=== PATIENT | male | born 1955 | race Caucasian/White ===

== ENCOUNTER 2020-12-13 14:23 | Outpatient (CLI) | payer MEDICARE, MEDICAID ==
[~2020-12-13 14:23] MED LIST: APIX5TAB3 PO; ATOR20TA66 PO; BENA20TA82 PO; GLIM4TAB7 PO; LEVE10002 PO; METF-438 PO; NICO-687 TD
[2020-12-14] MEDS ORDERED: ATOR40TA72 PO (11:21)
[2020-12-14] MEDS ORDERED: LEVE500T PO (11:21)
[2020-12-14] MEDS ORDERED: APIX5TAB3 PO (11:23)
[2020-12-14] MEDS ORDERED: ASPI-1265 PO (11:23)
[2020-12-14] MEDS ORDERED: iohexol 350MG/ML 100ml bottle IV ONE (13:21)
[2020-12-14] MEDS ORDERED: ticagrelor 90mg tablet ONE (13:39)
== END 2020-12-13 23:59 | disposition home or self-care (01) ==
LOC: RAD 14:23
PROVIDERS: ATTEND Psychiatry & Neurology Neurology
DX: I67.82 Cerebral ischemia (principal); Z86.73 Personal history of transient ischemic attack (TIA), and cerebral infarction without residual deficits
CPT/HCPCS: 70551; Q9967

== ENCOUNTER 2020-12-14 10:55 | Day surgery (SDC) | payer MEDICARE, MEDICAID ==
[2020-12-10 15:38] LABS: BASOPHILS # (AUTO) 0.1 X10'3 (0-0.2); BASOPHILS % (AUTO) 0.7 % (0-1); EOSINOPHILS # (AUTO) 0.3 X10'3 (0-0.9); EOSINOPHILS % (AUTO) 3.3 % (0-6); HEMATOCRIT 41.1 % (42.0-52.0); LYMPHOCYTES # (AUTO) 2.3 X10'3 (1.1-4.8); LYMPHOCYTES % (AUTO) 27.2 % (21-51); MEAN CORPUSCULAR HEMOGLOBIN 31.3 PG (27.0-31.0); MEAN CORPUSCULAR VOLUME 92.3 FL (78-98); MEAN PLATELET VOLUME 8.8 FL (7.4-10.4); MONOCYTES # (AUTO) 0.6 X10'3 (0-0.9); MONOCYTES % (AUTO) 7.6 % (2-12); NEUTROPHILS # (AUTO) 5.2 X10'3 (1.8-7.7); NEUTROPHILS % (AUTO) 61.2 % (42-75); PLATELET COUNT 262 X10'3 (140-440); RED BLOOD COUNT 4.45 X10'6 (4.70-6.10); RED CELL DISTRIBUTION WIDTH 14.3 % (11.5-14.5); WHITE BLOOD COUNT 8.5 X10'3 (4.5-11.0)
[2020-12-10 15:51] LABS: PARTIAL THROMBOPLASTIN TIME 31 SECONDS (22-32)
[2020-12-10 15:52] LABS: ALBUMIN 3.9 G/DL (3.4-5.0); ANION GAP 6 (8-16); BLOOD UREA NITROGEN 25 MG/DL (7-18); BUN/CREATININE RATIO 22.5 (5.4-32.0); CALCIUM 9.6 MG/DL (8.5-10.1); CHLORIDE 108 MMOL/L (99-107); CREATININE 1.11 MG/DL (0.60-1.10); GLUCOSE 93 MG/DL (70-104); POTASSIUM 4.6 MMOL/L (3.5-5.1); SODIUM 144 MMOL/L (135-145); TOTAL CARBON DIOXIDE 29.6 MMOL/L (24-32); eGFR 66 ML/MIN
[2020-12-14] VITALS (9 sets, daily range): BP systolic 130–153; BP diastolic 68–81
[~2020-12-14] VITALS: Ht 185.4 cm; Wt 92.1 kg
[2020-12-14] MEDS ORDERED: diphenhydrAMINE 25mg capsule PO PRN (11:15)
[2020-12-14] MEDS ORDERED: LIDOcaine/PRILOcaine 5gm cream TP ONE (11:15)
[2020-12-14] MEDS ORDERED: normal saline 1,000 ML IV SCH (11:15)
[2020-12-14] MEDS ORDERED: LORazepam 0.5 MG tablet PO PRN (11:15)
[2020-12-14] MEDS ORDERED: ATOR40TA72 PO (11:21)
[2020-12-14] MEDS ORDERED: LEVE500T PO (11:21)
[2020-12-14] MEDS ORDERED: APIX5TAB3 PO (11:23)
[2020-12-14] MEDS ORDERED: ASPI-1265 PO (11:23)
[2020-12-14] MEDS ORDERED: verapamil 2.5 mg/ml inj IV ONE (12:12)
[2020-12-14] MEDS ORDERED: nitroGLYCERIN-Tridil 50MG/D5W 250 ML IV ONE (12:12)
[2020-12-14] MEDS ORDERED: midazolam 1 mg/ML 2ml injection ONE (12:12)
[2020-12-14] MEDS ORDERED: heparin 1,000unit/ml 10ml vial 10 ML ONE (12:12)
[2020-12-14] MEDS ORDERED: fentaNYL/PF 50MCG/1 ML 2ML syringe ONE (12:12)
[2020-12-14] MEDS ORDERED: LIDOcaine 1% (10mg/ml)w/preservative injection 20ml MDV ONE (12:12)
[2020-12-14] MEDS ORDERED: iohexol 350MG/ML 100ml bottle IV ONE (12:13)
[2020-12-14] MEDS ORDERED: ondansetron/PF 4mg/2ml inj IV PRN (14:00)
[2020-12-14] MEDS ORDERED: proCHLORperazine 10 MG/2 ml inj IV PRN (14:00)
[2020-12-14] MEDS ORDERED: HYDROcodone/acetaminophen 5mg/325mg tablet PO PRN (14:00)
[2020-12-14] MEDS ORDERED: nitroGLYCERIN 0.4mg SUBLingual tab SL PRN (14:00)
[2020-12-14] MEDS ORDERED: HYDROcodone/acetaminophen 10/325mg tab PO PRN (14:00)
[2020-12-14] MEDS ORDERED: OXAZEpam 15mg capsule PO PRN (14:00)
[2020-12-14] MEDS ORDERED: acetaminophen 325mg tablet PO PRN (14:00)
== END 2020-12-14 17:00 | disposition home or self-care (01) ==
LOC: SSTAY O 10:55
PROVIDERS: ATTEND Internal Medicine Interventional Cardiology
DX: R94.39 Abnormal result of other cardiovascular function study (principal); R07.89 Other chest pain; I25.10 Atherosclerotic heart disease of native coronary artery without angina pectoris; E11.9 Type 2 diabetes mellitus without complications; I10 Essential (primary) hypertension; I48.91 Unspecified atrial fibrillation; E78.00 Pure hypercholesterolemia, unspecified; F17.210 Nicotine dependence, cigarettes, uncomplicated; Z86.73 Personal history of transient ischemic attack (TIA), and cerebral infarction without residual deficits; Z79.84 Long term (current) use of oral hypoglycemic drugs; Z79.01 Long term (current) use of anticoagulants; Z79.899 Other long term (current) drug therapy
CPT/HCPCS: 36415; 80048; 85025; 85610; 85730; 93005; 93458; 99152; 99153; C1751; C1769; C1874; C1894; C9600; J1644; J2001; J2250; J3010; J7030; Q0163; Q9967; A4620; J3490

== ENCOUNTER 2020-12-27 08:35 | Outpatient (CLI) | payer MEDICARE, MEDICAID ==
[~2020-12-27 08:35] MED LIST changes: +ASPI-1265 PO; -ATOR20TA66 PO; +ATOR40TA72 PO; -LEVE10002 PO; +LEVE500T PO; -NICO-687 TD
== END 2020-12-27 23:59 | disposition home or self-care (01) ==
LOC: RAD 08:35
PROVIDERS: ATTEND Psychiatry & Neurology Neurology
DX: R56.9 Unspecified convulsions (principal)
CPT/HCPCS: 95819

== ENCOUNTER 2021-03-27 14:47 | Emergency (ER) | payer MEDICARE, MEDICAID ==
[~2021-03-27] VITALS: Ht 185.4 cm; Wt 100.0 kg
[2021-03-27 15:02] VITALS: BP 204/114
== END 2021-03-27 17:52 | disposition home or self-care (01) ==
LOC: ER 14:48
DX: J20.9 Acute bronchitis, unspecified (principal); Z20.822 Contact with and (suspected) exposure to COVID-19; I10 Essential (primary) hypertension; E11.9 Type 2 diabetes mellitus without complications; F17.200 Nicotine dependence, unspecified, uncomplicated; Z79.82 Long term (current) use of aspirin; Z79.899 Other long term (current) drug therapy
CPT/HCPCS: 87502; 87503; 87635; 99283; C9803

== ENCOUNTER 2022-05-04 18:34 | Emergency (ER) | payer MEDICARE, MEDICAID ==
[~2022-05-04] VITALS: Ht 185.4 cm; Wt 90.7 kg
[2022-05-04 18:36] VITALS: BP 217/92
== END 2022-05-04 19:39 | disposition left against medical advice (07) ==
LOC: ER 18:34
DX: R51.9 Headache, unspecified (principal); Z53.21 Procedure and treatment not carried out due to patient leaving prior to being seen by health care provider
CPT/HCPCS: 70450

== ENCOUNTER 2024-04-08 10:46 | Inpatient (IN) | payer MEDICARE, MEDICAID ==
[~2024-04-08] VITALS: Ht 185.4 cm; Wt 87.6 kg
[2024-04-08 11:33] LABS: BASOPHILS # (AUTO) 0.1 X10'3 (0-0.2); BASOPHILS % (AUTO) 0.8 % (0-1); EOSINOPHILS # (AUTO) 0.2 X10'3 (0-0.9); EOSINOPHILS % (AUTO) 3.4 % (0-6); HEMATOCRIT 45.3 % (42.0-52.0); LYMPHOCYTES # (AUTO) 1.4 X10'3 (1.1-4.8); MEAN CORPUSCULAR HEMOGLOBIN 31.2 PG (27.0-31.0); MEAN CORPUSCULAR HGB CONC 33.2 g/dL (33.0-36.5); MEAN CORPUSCULAR VOLUME 94.1 FL (78-98); MEAN PLATELET VOLUME 8.4 FL (7.4-10.4); MONOCYTES # (AUTO) 0.5 X10'3 (0-0.9); MONOCYTES % (AUTO) 6.6 % (2-12); NEUTROPHILS % (AUTO) 69.2 % (42-75); PLATELET COUNT 293 X10'3 (140-440); RED BLOOD COUNT 4.81 X10'6 (4.70-6.10); RED CELL DISTRIBUTION WIDTH 14.3 % (11.5-14.5); WHITE BLOOD COUNT 7.2 X10'3 (4.5-11.0)
[2024-04-08 11:38] LABS: ALANINE AMINOTRANSFERASE 19 U/L (12-78); ALBUMIN 3.4 G/DL (3.4-5.0); ALBUMIN/GLOBULIN RATIO 0.9 (1.1-1.5); ALKALINE PHOSPHATASE 101 IU/L (46-116); ANION GAP 6 (8-16); ASPARTATE AMINO TRANSFERASE 16 U/L (10-37); BILIRUBIN,TOTAL 0.5 MG/DL (0.1-1.0); BLOOD UREA NITROGEN 25 MG/DL (7-18); CALCIUM 9.1 MG/DL (8.5-10.1); CHLORIDE 104 MMOL/L (99-107); CREATININE 1.47 MG/DL (0.60-1.10); GLUCOSE 322 MG/DL (70-104); POTASSIUM 4.8 MMOL/L (3.5-5.1); SODIUM 140 MMOL/L (135-145); TOTAL CARBON DIOXIDE 30.1 MMOL/L (24-32); TOTAL PROTEIN 7.4 G/DL (6.4-8.2); eCRCL 54 ML/MIN; eGFR 47 ML/MIN
[2024-04-08 11:47] LABS: PRO BRAIN NATRIURETIC PEPTIDE 5089 PG/ML (0-125)
[2024-04-08] MEDS ORDERED: iohexol 350MG/ML 100ml bottle IV ONE (14:11)
[2024-04-08] MEDS: normal saline 1000ML IV soln IVB ONE (15:32)
[2024-04-08] MEDS: insulin regular, human 10 units/0.1 ml syringe IV ONE (15:34)
[2024-04-08] MEDS ORDERED: potassium Cl 40MEQ/1/2NS 520ml 520 ML IV PRN (16:15)
[2024-04-08] MEDS ORDERED: mag hydrox/Alum hydrox/simeth 30ml oral suspension PO PRN (16:15)
[2024-04-08] MEDS ORDERED: ondansetron/PF 4mg/2ml inj IV PRN (16:15)
[2024-04-08] MEDS ORDERED: magnesium sulf-water 4G/100mL 100 ML IV PRN (16:15)
[2024-04-08] MEDS ORDERED: potassium Cl 20 mEq SR tablet PO PRN ×2 (16:15)
[2024-04-08] MEDS ORDERED: acetaminophen 325mg tablet PO PRN (16:15)
[2024-04-08] MEDS ORDERED: magnesium sulf-water 2g/50mL 50 ML IV PRN (16:15)
[2024-04-08] MEDS ORDERED: magnesium Cl slow-release 64mg tablet PO PRN (16:15)
[2024-04-08] MEDS ORDERED: magnesium hydroxide 30ml (MOM) UD suspension PO PRN (16:15)
[2024-04-08] MEDS: PERFLUTREN PROTEIN-A MICROSPHR (Optison) 0.22 MG/ML 3ML VIAL IV ONE (16:26)
[2024-04-08] MEDS: normal saline 1000ml 1,000 ML IV SCH (16:26)
[2024-04-08] MEDS ORDERED: FLO0.4C (18:56)
[2024-04-08] MEDS ORDERED: TICA90TA2 PO (18:56)
[2024-04-08] MEDS ORDERED: NITR0.4T48 (18:56)
[2024-04-08] MEDS ORDERED: EMPA25TA PO (18:56)
[2024-04-08] MEDS ORDERED: INSU100I31 SQ (18:56)
[2024-04-08] MEDS: K and/or MAG REPLACEMENT MC SCH (20:00)
[2024-04-08] MEDS: docusate sod 100mg capsule PO SCH (20:00)
[2024-04-08 21:19] VITALS: BP 178/83; PULSE 57; RESP 18; TEMP 97.7; O2SAT 97
[2024-04-08] MEDS ORDERED: dextrose 50%-water 50ml dispensing syringe IV PRN ×2 (21:45)
[2024-04-08] MEDS ORDERED: glucagon, human recombinant 1mg kit SUBCUT PRN (21:45)
[2024-04-08] MEDS ORDERED: DEXTROSE 15 GM of carb/4 tabs (each vial/BOTTLE has 4 tablets) PO PRN ×2 (21:45)
[2024-04-08 22:06] LABS: HEMOGLOBIN A1C 9.4 % (4.5-6.2)
[2024-04-08] MEDS: ticagrelor 90mg tablet PO SCH (22:22)
[2024-04-08] MEDS: apixaban 5mg tablet PO SCH (22:22)
[2024-04-08] MEDS: levetiracetam 250mg tablet PO SCH (22:22)
[2024-04-08] MEDS: lisinopril 20mg tablet PO SCH (22:26)
[2024-04-08] MEDS: INSULIN LISPRO 100 UNIT/ML INSULN.PEN MULTI-DOSE SQ SCH (23:51)
[2024-04-08] MEDS: insulin glargine (Lantus) pen - multi-dose SQ SCH (23:52)
[2024-04-09] VITALS (9 sets, daily range): BP systolic 141–166; BP diastolic 64–84; PULSE 55–71; RESP 16–20; TEMP 97.3–98.8; O2SAT 94–99
[2024-04-09] MEDS: guaiFENesin/DM 10ml UD oral syrup PO PRN (01:42)
[2024-04-09 06:50] LABS: BASOPHILS # (AUTO) 0.1 X10'3 (0-0.2); BASOPHILS % (AUTO) 0.7 % (0-1); EOSINOPHILS # (AUTO) 0.4 X10'3 (0-0.9); EOSINOPHILS % (AUTO) 4.4 % (0-6); HEMATOCRIT 41.1 % (42.0-52.0); HEMOGLOBIN 13.7 g/dl (14.0-17.9); LYMPHOCYTES # (AUTO) 2.2 X10'3 (1.1-4.8); MEAN CORPUSCULAR HEMOGLOBIN 31.2 PG (27.0-31.0); MEAN CORPUSCULAR HGB CONC 33.4 g/dL (33.0-36.5); MEAN CORPUSCULAR VOLUME 93.5 FL (78-98); MONOCYTES # (AUTO) 0.7 X10'3 (0-0.9); MONOCYTES % (AUTO) 8.4 % (2-12); NEUTROPHILS # (AUTO) 4.8 X10'3 (1.8-7.7); NEUTROPHILS % (AUTO) 59.5 % (42-75); PLATELET COUNT 250 X10'3 (140-440); RED CELL DISTRIBUTION WIDTH 14.4 % (11.5-14.5)
[2024-04-09 06:51] LABS: ALBUMIN 2.9 G/DL (3.4-5.0); ANION GAP 6 (8-16); BLOOD UREA NITROGEN 23 MG/DL (7-18); BUN/CREATININE RATIO 15.6 (10.0-20.0); CALCIUM 8.4 MG/DL (8.5-10.1); CHLORIDE 107 MMOL/L (99-107); CREATININE 1.47 MG/DL (0.60-1.10); GLUCOSE 223 MG/DL (70-104); POTASSIUM 3.9 MMOL/L (3.5-5.1); SODIUM 144 MMOL/L (135-145); TOTAL CARBON DIOXIDE 30.9 MMOL/L (24-32); eCRCL 54 ML/MIN; eGFR 47 ML/MIN
[2024-04-09] MEDS: atorvastatin 20mg tablet PO SCH (07:44)
[2024-04-09] MEDS: INSULIN LISPRO 100 UNIT/ML INSULN.PEN MULTI-DOSE SQ SCH (09:00)
[2024-04-09 11:40] LABS: CHOL/HDL RATIO 2.7 (0.00-4.99); CHOLESTEROL 136 MG/DL (0-200); HDL CHOLESTEROL 51 MG/DL (35-60); LDL CHOLESTEROL 63 MG/DL (50-100); TRIGLYCERIDES 112 MG/DL (20-135)
[2024-04-10 02:00] VITALS: BP 148/63; PULSE 55; RESP 18; TEMP 97.9; O2SAT 96
[2024-04-10 07:10] LABS: ALBUMIN 2.8 G/DL (3.4-5.0); ANION GAP 5 (8-16); BLOOD UREA NITROGEN 28 MG/DL (7-18); BUN/CREATININE RATIO 19.4 (10.0-20.0); CALCIUM 8.6 MG/DL (8.5-10.1); CHLORIDE 108 MMOL/L (99-107); CREATININE 1.44 MG/DL (0.60-1.10); GLUCOSE 151 MG/DL (70-104); MAGNESIUM 2.1 MG/DL (1.5-2.4); SODIUM 144 MMOL/L (135-145); TOTAL CARBON DIOXIDE 31.2 MMOL/L (24-32); eCRCL 55 ML/MIN; eGFR 49 ML/MIN
[2024-04-10 07:12] LABS: BASOPHILS # (AUTO) 0.1 X10'3 (0-0.2); BASOPHILS % (AUTO) 0.9 % (0-1); EOSINOPHILS # (AUTO) 0.4 X10'3 (0-0.9); EOSINOPHILS % (AUTO) 4.3 % (0-6); HEMATOCRIT 40.4 % (42.0-52.0); HEMOGLOBIN 13.6 g/dl (14.0-17.9); LYMPHOCYTES # (AUTO) 2.1 X10'3 (1.1-4.8); LYMPHOCYTES % (AUTO) 23.9 % (21-51); MEAN CORPUSCULAR HEMOGLOBIN 31.3 PG (27.0-31.0); MEAN CORPUSCULAR HGB CONC 33.6 g/dL (33.0-36.5); MEAN CORPUSCULAR VOLUME 93.1 FL (78-98); MEAN PLATELET VOLUME 8.4 FL (7.4-10.4); MONOCYTES # (AUTO) 0.7 X10'3 (0-0.9); MONOCYTES % (AUTO) 8.2 % (2-12); NEUTROPHILS # (AUTO) 5.6 X10'3 (1.8-7.7); NEUTROPHILS % (AUTO) 62.7 % (42-75); PLATELET COUNT 260 X10'3 (140-440); RED BLOOD COUNT 4.34 X10'6 (4.70-6.10); RED CELL DISTRIBUTION WIDTH 14.1 % (11.5-14.5); WHITE BLOOD COUNT 8.9 X10'3 (4.5-11.0)
[2024-04-10 08:00] VITALS: BP 142/68; PULSE 62
[2024-04-10] MEDS: normal saline 1000ml 1,000 ML IV SCH (11:09)
[2024-04-10 12:00] VITALS: BP 163/83; PULSE 61; RESP 16; TEMP 97.5; O2SAT 99
[2024-04-10 14:09] VITALS: RESP 16; O2SAT 100
[2024-04-10 15:00] VITALS: BP 157/75; PULSE 59; RESP 16; TEMP 97.6; O2SAT 97
[2024-04-12] MEDS ORDERED: HYDR50TA46 PO (10:05)
[2024-04-12] MEDS ORDERED: PANT-47 PO (10:09)
== END 2024-04-10 17:16 | disposition home or self-care (01) | DRG 149 ==
LOC: ER 10:46 → ED HOLD 16:22 → EDBEDREQ 20:35 → PCU 3S 21:16
PROVIDERS: ADMIT Internal Medicine; ATTEND Internal Medicine
PROC: B3251ZZ Computerized Tomography (CT Scan) of Bilateral Common Carotid Arteries using Low Osmolar Contrast (ICD-10-PCS; principal; 2024-04-08)
PROC: B32G1ZZ Computerized Tomography (CT Scan) of Bilateral Vertebral Arteries using Low Osmolar Contrast (ICD-10-PCS; 2024-04-08)
PROC: B32R1ZZ Computerized Tomography (CT Scan) of Intracranial Arteries using Low Osmolar Contrast (ICD-10-PCS; 2024-04-08)
PROC: B3281ZZ Computerized Tomography (CT Scan) of Bilateral Internal Carotid Arteries using Low Osmolar Contrast (ICD-10-PCS; 2024-04-08)
DX: H81.10 Benign paroxysmal vertigo, unspecified ear (principal); I69.354 Hemiplegia and hemiparesis following cerebral infarction affecting left non-dominant side; I67.4 Hypertensive encephalopathy; I16.0 Hypertensive urgency; I10 Essential (primary) hypertension; Z20.822 Contact with and (suspected) exposure to COVID-19; G40.909 Epilepsy, unspecified, not intractable, without status epilepticus; E78.5 Hyperlipidemia, unspecified; E11.65 Type 2 diabetes mellitus with hyperglycemia; Z79.01 Long term (current) use of anticoagulants; Z79.899 Other long term (current) drug therapy; Z79.84 Long term (current) use of oral hypoglycemic drugs
CPT/HCPCS: 36415; 70450; 70496; 70498; 70551; 71045; 80048; 80053; 80061; 82948; 83036; 83735; 83880; 84484; 85025; 87081; 87811; 93005; 93306; 93880; 97162; 99285; A6223; A6258; A6402; A6446; A6449; G0378; J1815; J7030; Q9967

== ENCOUNTER 2025-01-27 10:35 | Day surgery (SDC) | payer MEDICARE, MEDICAID ==
[~2025-01-27] VITALS: Ht 185.4 cm; Wt 82.2 kg
[2025-01-27] VITALS (10 sets, daily range): BP systolic 142–162; BP diastolic 65–83; PULSE 59–87; RESP 12–18; TEMP 98.3; O2SAT 93–97
[~2025-01-27 10:35] MED LIST changes: +AMLO-379 PO; -ASPI-1265 PO; -BENA20TA82 PO; +EMPA25TA PO; +FURO40TA4 PO; -GLIM4TAB7 PO; +HYDR50TA46 PO; +INSU100I31 SQ; -LEVE500T PO; +NITR0.4T48; +SOTA80TA73 PO; +TADA5TAB14 PO
--- NOTE | 2025-01-27 11:07 | ELECTROCARDIOGRAPH REPORT ---
[facility] Test Date: 2025-01-27 Test Time: 11:04:53 Pat Name: MAGNO SCOTT Department: [facility] O Patient ID: [facility]-[id number] Room: Gender: M Progressive Care Manager: NIMO : 1955 Requested By: CLAUDIA SANDERSON Order Number: [id number] Reading MD: Dr. CHAN Cohen Measurements Intervals [place] Rate: 86 P: 0 MS: 0 QRS: -75 QRSD: 149 T: 101 QT: 449 QTc: 537 Interpretive Statements Accelerated junctional rhythm Right bundle branch block LVH with IVCD and secondary repol abnrm Inferior infarct, acute Prolonged QT interval Electronically Signed On 01-27-2025 16:29:[address] CHAN Cohen Please click the below link to view image of tracing.
[2025-01-27 11:26] LABS: MEAN PLATELET VOLUME 8.9 FL (7.4-10.4); RED CELL DISTRIBUTION WIDTH 15.6 % (11.5-14.5)
[2025-01-27 12:14] LABS: CREATININE 1.25 MG/DL (0.60-1.10); TOTAL CARBON DIOXIDE 28.4 MMOL/L (24-32); eCRCL 62 ML/MIN; eGFR 57 ML/MIN
[2025-01-27 12:16] LABS: APTT 27 SECONDS (22-32); INR 1.0 INR
[2025-01-27] MEDS ORDERED: LIDOcaine 1% (10mg/ml) 2ml vial ONE (13:58)
[2025-01-27] MEDS ORDERED: verapamil 2.5 mg/ml inj IV ONE (13:58)
[2025-01-27] MEDS ORDERED: fentaNYL/PF 50MCG/1 ML 2ML syringe ONE (13:59)
[2025-01-27] MEDS ORDERED: heparin 1,000unit/ml 10ml vial 10 ML ONE (13:59)
[2025-01-27] MEDS ORDERED: midazolam 1 mg/ML 2ml injection ONE (13:59)
[2025-01-27] MEDS ORDERED: nitroGLYCERIN 500mcg/5mL D5W 5 ML IV ONE (14:00)
[2025-01-27] MEDS ORDERED: iohexol 350 MG/ML 50ML vial IV ONE ×2 (14:39→14:47)
[2025-01-27] MEDS ORDERED: clopidogrel 300mg tablet ONE (14:55)
[2025-01-27] MEDS ORDERED: CLOP-32 PO (15:37)
[2025-01-27] MEDS ORDERED: ASPI-1265 PO (15:38)
[2025-01-27] MEDS ORDERED: ondansetron/PF 4mg/2ml inj IV PRN (16:00)
[2025-01-27] MEDS ORDERED: HYDROcodone/acetaminophen 5mg/325mg tablet PO PRN (16:00)
[2025-01-27] MEDS ORDERED: HYDROcodone/acetaminophen 10/325mg tab PO PRN (16:00)
--- NOTE | 2025-01-27 19:22 | CARDIAC CATH REPORT ---
Cardiac Cath Report Providers to CC CC: CISCO SANDERSON MD Procedure Comments: 1. Left Heart Catheterization 2. Selective Coronary Angiography 3. Percutaneous Coronary Intervention of the Obtuse Marginal Artery x 1 4. Right Radial Artery Access Brief History/Indications: 69yo man with HTN, HLD, DM, Afib, CAD(s/p PCI LAD) with episodes of CP, found to have anteroapical ischemia on stress testing. Techniques: After informed consent was obtained, the patient was brought to the cardiac catheterization laboratory and prepped and draped in usual sterile fashion for left heart catheterization and other procedures mentioned above. The right wrist was anesthetized with 1% Lidocaine and the right radial artery accessed via the Seldinger technique after which a 6Fr sheath was placed. Through this a TIG was used to engage the left ventricle, the left coronary artery, and the right coronary artery. See below for interventional procedure details. At the conclusion of the case the sheath was removed and hemostasis obtained with a VascBand. Findings Findings: HEMODYNAMICS: LV: 100/7 mmHg LVEDP: 14 mmHg Ao: 98/50, MAP 68 mmHg CORONARY ARTERIES: Rt Dominant LMCA: Luminal Irregularities LAD: Patent prox LAD stent with mild ISR. D1: Ostial 50%, jailed by LAD stent D2: Luminal Irregularities D3: Luminal Irregularities LCx: Luminal Irregularities OM1: 80% Proximal stenosis OM2: Luminal Irregularities RCA: Mid 40-50%, distal 50% stenosis PDA: Luminal Irregularities PL: 20-30% stenosis PERCUTANEOUS CORONARY INTERVENTION of the OM: An XBC4 guide was used to engage the left coronary artery. The OM lesion was crossed with a BMW wire. Pre-dilatation was performed with a 2.0x12mm balloon. Repeat angiography revealed adequate pre-treatment of the lesion without evidence of dissection. Subsequently, a 3.0x15mm [place] Alpine CHARLES was deployed across the lesion. The lesion was not post-dilated. Repeat angiography revealed adequate stent expansion without evidence of dissection. Results Results: 1. Obstructive CAD involving the proximal OM1. Patent LAD disease. Mod RCA disease. 2. PCI of the OM1 with 3.0x15mm [place] Alpine CHARLES 3. RRA Access, closed with VascBand RECOMMENDATIONS: 1. Cont ASA 81mg x30d given OAC 2. Cont plavix 75mg QD x 6 months 3. Recommend uptitration of other max-tolerated GDMT SANDERSON,AAZIB MD Jan 27, 2025 19:21
== END 2025-01-27 18:05 | disposition home or self-care (01) ==
LOC: SSTAY O 10:35
PROVIDERS: ATTEND Student in an Organized Health Care Education/Training Program
DX: R94.39 Abnormal result of other cardiovascular function study (principal); I25.10 Atherosclerotic heart disease of native coronary artery without angina pectoris; I10 Essential (primary) hypertension; E78.5 Hyperlipidemia, unspecified; E11.9 Type 2 diabetes mellitus without complications; I48.91 Unspecified atrial fibrillation; I48.0 Paroxysmal atrial fibrillation; Z79.899 Other long term (current) drug therapy; Z98.890 Other specified postprocedural states; Z95.5 Presence of coronary angioplasty implant and graft
CPT/HCPCS: 36415; 80048; 82948; 85025; 85610; 85730; 93005; 93458; 99152; 99153; A6258; A6402; C1725; C1751; C1769; C1874; C1894; C9600; J1644; J2003; J2250; J3010; J3490; J7030; Q0163; Q9967; Z7610

== ENCOUNTER 2025-04-01 20:06 | Inpatient (IN) | payer MEDICARE, MEDICAID ==
[~2025-04-01] VITALS: Ht 185.4 cm; Wt 83.5 kg
[~2025-04-01 20:06] MED LIST changes: +CLOP-32 PO; -HYDR50TA46 PO
--- NOTE | 2025-04-01 21:32 | RADIOLOGY REPORT ---
CLINICAL INDICATION: HAND PAIN,right TECHNIQUE: HAND 3VWDI HAND, COMPLETE (3VW MIN) Comparison: None FINDINGS/IMPRESSION: : There is no evidence of acute fracture or dislocation. Generalized soft tissue edema throughout the hand.
[2025-04-01 21:46] LABS: MEAN PLATELET VOLUME 8.7 FL (7.4-10.4); RED CELL DISTRIBUTION WIDTH 14.7 % (11.5-14.5)
[2025-04-01 22:17] LABS: CREATININE 2.25 MG/DL (0.60-1.10); TOTAL CARBON DIOXIDE 27.8 MMOL/L (24-32); eCRCL 35 ML/MIN; eGFR 29 ML/MIN
[2025-04-01] MEDS: normal saline 1000ml 1,000 ML IV ONE (22:22)
[2025-04-01] MEDS: acetaminophen 1,000mg/100ml IV 100 ML IV ONE (22:22)
[2025-04-01] MEDS: vancomycin/NS 1 GM ADD-VANTAGE 250 ML IV ONE (22:22)
[2025-04-01] MEDS: ketorolac trometh 15mg/ml vial 15 MG/ML ML IV ONE (22:22)
--- NOTE | 2025-04-01 22:32 | Physician Documentation ---
History of Present Illness ~ Chief Complaint: Abscess Stated Complaint: HAND SWOLLEN Time Seen by MD: 21:22 HPI 69-year-old right-hand dominant male insulin-dependent diabetic on Eliquis was seen at [place] emergency department for right hand cellulitis with early abscess and placed on Bactrim. Seen nearly three days ago and since that time has had significant swelling and redness with worsening of abscess. Patient open abscess on its own and had purulent discharge. Subsequently he has had advancing erythema up the forearm primarily in the dorsum side with lymphangitis and axillary no lymphadenopathy. He is grossly neurologically intact radial median ulnar nerve. Tetanus Within 5 Years: Yes Medication Reconciliation Allergies: Coded Allergies: No Known Allergies (Unverified , 04/01/25) Scheduled Amlodipine/Valsartan (Amlodipine-Valsartan 5-160 mg), 1 TAB PO DAILY, (Reported) Apixaban (Eliquis), 1 TAB PO Q12H, (Reported) Atorvastatin Calcium (Atorvastatin Calcium), 1 TAB PO DAILY, (Reported) Clopidogrel Bisulfate (Plavix), 1 TAB PO DAILY Empagliflozin (Jardiance), 1 TAB PO DAILY, (Reported) Furosemide (Furosemide), 1 TAB PO DAILY, (Reported) Metformin HCl (Metformin HCl), 1 TAB PO BID, (Reported) Sotalol Hcl* (Betapace*), 1 TAB PO BID, (Reported) Miscellaneous Medications Insulin Glargine,Hum.rec.anlog (Basaglar Kwikpen U-100), SQ, (Reported) Nitroglycerin (Nitroglycerin), (Reported) Tadalafil (Tadalafil), 1 TAB PO, (Reported) Past Medical History Past Medical History: CVA/TIA/Stroke, Hypertension, Diabetes Past Surgical History: noncontributory Smoking Status: Current every day smoker Alcohol Use: None Drug Use: none Review of Systems All Other Systems at this time: Reviewed and Negative Constitutional: Reports: chills, fever, malaise Musculoskeletal: Reports: pain, swelling Physical Exam Vital Signs: RN Vital Signs have been reviewed: Yes, Temperature: 98.0, Source: Oral, Heart Rate: 80, Respiratory Rate: 15, BP: 156/68, Pulse Oximetry: 98, Weight: 83.500 Oxygen Flow Rate: 0 General Appearance: alert, WD/WN Neck: normal inspection Cardiovascular: tachycardia Respiratory: lungs clear Gastrointestinal: non-tender Skin: other (Erythema to the dorsum of the right hand with swelling erythema to the distal radius on the dorsum side with lymphangitis 1 cm granulated pustule of the dorsum of the hand with painful extensor mechanism) Neurologic: oriented x4 Lymphatic: lymphangitis Psychiatric: normal mood/affect Progress Results/Orders Results/Orders Orders - ALYSE CORRALES PAC Hand, Complete (3vw Min) (04/01/25 21:15) Culture Blood (04/01/25 21:43) Vancomycin/Ns 1 Gm Add-[place] (Vancomyc (04/01/25 23:30) Page Hospitalist (04/01/25 23:28) Fill Out Med Reconciliation (04/01/25 23:28) Completed Orders - ALYSE CORRALES PAC Cbc/Diff (04/01/25 20:59) BMP (04/01/25 20:59) C-Reactive Protein (04/01/25 20:59) Hand, Complete (3vw Min) (04/01/25 21:15) Lacticsepsis (04/01/25 21:43) Vancomycin*Pharmacy To Dose* (Vancomycin (04/01/25 21:45) Normal Saline 1000ml (0.9% Sodium Chlori (04/01/25 21:45) Acetaminophen 1,000mg/100ml Iv (Ofirmev (04/01/25 21:45) Ketorolac Trometh 15mg/Ml Vial (Toradol (04/01/25 21:45) Vancomycin/Ns 1 Gm Add-[place] (Vancomyc (04/01/25 22:00) Medications Received in ER Medications (Trade) Dose Ordered Sig/Julianne Route PRN Reason Start Time Stop Time Status Last Admin Dose Admin Sodium Chloride 1,000 ml @ 1,000 mls/hr ONCE ONCE IV 04/01/25 21:45 04/01/25 22:44 DC 04/01/25 22:22 1,000 MLS/HR Acetaminophen 100 ml @ 400 mls/hr ONCE ONCE IV 04/01/25 21:45 04/01/25 22:02 DC 04/01/25 22:22 400 MLS/HR (Toradol injection) 15 mg ONCE ONCE IV 04/01/25 21:45 04/01/25 21:47 DC 04/01/25 22:22 15 MG Vancomycin HCl 250 ml @ 166 mls/hr ONCE ONCE IV 04/01/25 22:00 04/01/25 23:30 DC 04/01/25 22:22 166 MLS/HR Vital Signs 04/01/25 04/01/25 04/01/25 20:09 21:15 22:30 Temp 98.0 Pulse 78 80 72 Resp 16 15 15 B/P (MAP) 167/66 156/68 (97) 135/62 (86) Pulse Ox 98 98 99 O2 Flow Rate 0 Laboratory Tests Test 04/01/25 21:37 White Blood Count 15.8 H Red Blood Count 4.80 Hemoglobin 15.6 Hematocrit 45.6 Mean Corpuscular Volume 94.9 Mean Corpuscular Hemoglobin 32.4 H Mean Corpuscular Hemoglobin Concent 34.1 Red Cell Distribution Width 14.7 H Platelet Count 213 Mean Platelet Volume 8.7 Neutrophils (%) (Auto) 86.3 H Lymphocytes (%) (Auto) 5.0 L Monocytes (%) (Auto) 7.8 Eosinophils (%) (Auto) 0.7 Basophils (%) (Auto) 0.2 Neutrophils # (Auto) 13.6 H Lymphocytes # (Auto) 0.8 L Monocytes # (Auto) 1.2 H Eosinophils # (Auto) 0.1 Basophils # (Auto) 0.0 CBC Comment Sodium Level 133 L Potassium Level 4.5 Chloride Level 96 L Carbon Dioxide Level 27.8 Anion Gap 9 Blood Urea Nitrogen 31 H Creatinine 2.25 H Estimated GFR/1.73 m2 29 BUN/Creatinine Ratio 13.8 Glucose Level 470 *H Lactic Acid Level 1.7 Calcium Level 8.8 C-Reactive Protein 24.34 H Albumin 3.1 L Chemistry Comments Medical Decision Making Additional information obtaine: family Findings Examination and history consistent with insulin-dependent diabetic with right upper extremity cellulitis with open draining abscess to the dorsum of the right hand. Elevated blood sugar noted yet patient to receive a L and a half of normal saline for which he will be rechecked prior to the administration of insulin. Patient will receive loading dose of 2 g of vanco along with the pain management. Labs otherwise reassuring other than elevated CRP in leukocytosis which is consistent with localized in early systemic symptoms. Discussed case with Dr. Dey a orthopedist who request hospitalist admission for an for him to follow up. Patient resting well and we will receive serial evaluations. No clinical suspicion for compartment syndrome and/or septic wrist. Differential Dx:Considerations: Include: Abscess, Bacteremia, Cellulitis, Lymphangitis, Septicemia Departure Disposition: ADMITTED INPATIENT Admitted to Inpatient Unit: to hospitalist, to orthopedist (Discussed case with Dr Dey via text who agrees to have Hospitalist Admit) Impression: Primary Impression: Cellulitis Qualified Codes: L03.113 - Cellulitis of right upper limb Additional Impressions: MESSI (acute kidney injury) Hyperglycemia Abscess of right hand Referrals: NO PRIMARY CARE PROVIDER (PCP) Signature Scribe Signature: . Attestation: . ALYSE CORRALES PAC Apr 01, 2025 22:31
[2025-04-02] MEDS: vancomycin/NS 1 GM ADD-VANTAGE 250 ML IV ONE (00:05)
[2025-04-02] MEDS ORDERED: potassium Cl 40MEQ/1/2NS 520ml 520 ML IV PRN (00:50)
[2025-04-02] MEDS ORDERED: magnesium sulf-water 2g/50mL 50 ML IV PRN (00:50)
[2025-04-02] MEDS ORDERED: HYDROcodone/acetaminophen 10/325mg tab PO PRN (00:50)
[2025-04-02] MEDS ORDERED: ondansetron/PF 4mg/2ml inj IV PRN (00:50)
[2025-04-02] MEDS ORDERED: magnesium Cl slow-release 64mg tablet PO PRN (00:50)
[2025-04-02] MEDS ORDERED: magnesium hydroxide 30ml (MOM) UD suspension PO PRN (00:50)
[2025-04-02] MEDS ORDERED: potassium Cl 20 mEq SR tablet PO PRN ×2 (00:50)
[2025-04-02] MEDS ORDERED: magnesium sulf-water 4G/100mL 100 ML IV PRN (00:50)
[2025-04-02] MEDS ORDERED: mag hydrox/Alum hydrox/simeth 30ml oral suspension PO PRN (00:50)
[2025-04-02] MEDS ORDERED: HYDROcodone/acetaminophen 5mg/325mg tablet PO PRN (00:50)
[2025-04-02] MEDS: normal saline 1000ml 1,000 ML IV SCH (00:50)
[2025-04-02] MEDS ORDERED: glucagon, human recombinant 1mg kit SUBCUT PRN (00:55)
[2025-04-02] MEDS ORDERED: DEXTROSE 15 GM of carb/4 tabs (each vial/BOTTLE has 4 tablets) PO PRN ×2 (00:55)
[2025-04-02] MEDS ORDERED: dextrose 50%-water 50ml dispensing syringe IV PRN ×2 (00:55)
[2025-04-02] MEDS: insulin regular, human 10 units/0.1 ml syringe IV ONE (00:55)
--- NOTE | 2025-04-02 01:02 | HISTORY AND PHYSICAL-Residence ---
History & Physical Providers to CC Resident Creating Document: LAUREL EMMANUEL, RES ~ History of Present Illness Reason for Admit\Complaint: Upper extremity cellulitis History of Present Illness This is a 69-year-old male with past medical history of diabetes mellitus comes to the ED with chief complaints of pain and swelling in his right hand. Patient reports that his right hand began to swell on Sunday, gradually increasing in size and later turned red in color. 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 Patient says that he noticed a bleb on his right hand, he picked it with a knife, which resulted in yellow colored discharge from the bleb. Patient also reports that he has been having chills for the last 2 days but no episodes of fevers. Patient says that this is the 1st episode that he is experiencing something like this, never had similar complaints in the past. Allergies: Coded Allergies: No Known Allergies (Unverified , 04/01/25) Home Medications Home Medications Active Plavix (Clopidogrel Bisulfate) 75 Mg Tablet 1 Tab PO DAILY Reported Furosemide 40 Mg Tablet 1 Tab PO DAILY Betapace* (Sotalol HCl) 80 Mg Tablet 1 Tab PO BID Amlodipine-Valsartan 5-160 mg (Amlodipine/Valsartan) 5 Mg-160 Mg Tablet 1 Tab PO DAILY Tadalafil 5 Mg Tablet 1 Tab PO Nitroglycerin 0.4 Mg Tab.subl Jardiance (Empagliflozin) 25 Mg Tablet 1 Tab PO DAILY Basaglar Kwikpen U-100 (Insulin Glargine,Hum.rec.anlog) 100 Unit/Ml (3 Ml) Insuln.pen SQ Eliquis (Apixaban) 5 Mg Tablet 1 Tab PO Q12H Atorvastatin Calcium 40 Mg Tablet 1 Tab PO DAILY Metformin HCl 1,000 Mg Tablet 1 Tab PO BID Past Medical History Past Medical History Diabetes mellitus type 2 History of stroke 4 years ago Past Surgical History Surgical History Comment Stent placed [address] Cameron, currently patient on Eliquis No other significant surgical history Past Social History Social History Comment Patient stopped smoking many years ago, earlier used to smoke 15 cigarettes per day. No alcohol use or other illicit drug use Patient lives alone at home Alcohol Use: None Drug Use: None ROS All Other Systems: Reviewed and Negative ROS Constitutional: Denies: no symptoms reported, Eyes: Denies: no symptoms reported ENT: Denies: no symptoms reported Respiratory: Denies: no symptoms reported Cardiovascular: Denies: no symptoms reported Gastrointestinal: Denies: No symptoms reported Genitourinary: Denies: no symptoms reported Neurological: Denies: no symptoms reported Musculoskeletal: Denies: Right hand pain Endocrine: Denies: no symptoms reported Gastrointestinal: Reports: No symptoms reported Genitourinary: Reports: No symptoms reported Constitutional: Reports: chills, fever, malaise Musculoskeletal: Reports: pain, swelling Exam Vitals: Vital Signs Date Time Temp Pulse Resp B/P (MAP) Pulse Ox O2 Delivery O2 Flow Rate FiO2 04/02/25 00:00 80 13 145/64 (91) 100 04/01/25 20:09 98.0 0 General: General: Awake, alert, oriented, not in acute distress HEENT: Conjunctive are pink, sclerae clear, no icterus, Neck: Supple, no JVD, no lymphadenopathy and thyromegaly. Chest: Equal air entry on both lungs, no added sounds, no wheeze. Cardiovascular: S1-S2 heard no gallops, no rubs, no murmurs Abdomen: soft, nontender, no guarding, no rigidity Extremities: No edema, no cyanosis, peripheral pulsations intact. Right hand is swollen, and red, small round open wound present on the right hand, slight yellow colored discharge seen. Patient able to move his hand and fingers. No crepitus felt. Central Nervous System: No focal neurological deficits Skin: Warm and dry. Diagnostic Data Last Recorded Lab Results: 04/01/25213604/01/252136 Advance Care Planning Advanced Care plannin - 30 Minutes (Full code) Additional Plan Right hand cellulitis Swelling/pain Patient does not meet SIRS criteria WBC increased 15.8, procal normal CRP elevated 24.34, lactic acid normal X-ray of the hand shows no evidence of acute fracture or dislocation. Generalized soft tissue edema throughout the hand. Started patient on vancomycin and ceftriaxone Wound care consulted U tox ordered please follow-up Currently no signs of compartment syndrome present Dr. Dey aware of the patient Increased blood glucose levels Likely Due to uncontrolled diabetes Glucose on admission 470 HbA1c ordered follow-up No metabolic acidosis Patient not meeting criteria for DKA or HHS Patient on hyperglycemia hypoglycemia protocol MESSI on chronic kidney disease Likely prerenal Baseline creatinine 1.11 Current creatinine 2.25, GFR 29 Urine lytes ordered. Follow-up Patient on fluids 100 cc/hour Mild hyponatremia- Na- 133 Patient on fluids NS We will continue to monitor sodium levels Coronary artery disease s/p stent placement- Patient currently on dual antiplatelet Eliquis 5 mg, Plavix 75 mg. Patient on atorvastatin 40 mg Lipid panel ordered follow-up Patient follows up outpatient with Dr. Cameron BPH- Patient uses tadalafil 5 mg Follow-up outpatient. Disposition- monitor patient hand closely for any signs of compartment syndrome. Code status: Full code DVT profile: Eliquis Diet: Carb controlled Laurel Emmanuel PGY-1 Allyson ADdendum #1 Neuro: - Monitor for delirium #2 CV: HTN - Pt HD stable, continue Norvasc and Losartan for blood pressure management - Monitor vitals #3 Pulm: - Promote IS use - Keep O2 sat >92% #4 GI: - Advance diet when ok with primary #5 Renal: - Monitor for MESSI - Replete electrolytes #6 ID: Hand Cellulitis and UTI - Continue vancomycin cefepime for gram-positive coverage #7 Endo: Diabetes Mellitus - Continue Lantus for basal insulin coverage - Initiate sliding scale insulin to keep serum glucose 150-180 #8 Heme/Onc: - Monitor for bleeding and blood clots - Continue Apixaban and Plavix for anticoagulation to prevent clots - Keep Hgb >7 and plt >10 #9 PPx: - Chemical DVT PPx with existing anticoagulant therapy I saw this patient and completed a full visual exam via audio-visual HIPAA compliant technology. Date of Service: Apr 02, 2025 Billing Provider: VINCENT DELA CRUZ MD,LAUREL, RES Apr 02, 2025 01:02 VINCENT DELA CRUZ MD Apr 02, 2025 08:03
[2025-04-02 01:31] LABS: LEUKOCYTE ESTERASE ,URINE NEGATIVE (Neg); NITRITES, URINE NEGATIVE (Neg); OCCULT BLOOD,URINE TRACE-INTACT (Neg)
[2025-04-02 01:32] LABS: UA COLLECTION TYPE CLN CATCH MIDSTREAM
[2025-04-02 01:34] LABS: SQUAMOUS EPITHELIAL CELL,UR NONE SEEN /LPF (FEW)
[2025-04-02 01:35] LABS: MUCUS STRANDS NONE SEEN /LPF (Neg)
[2025-04-02 03:35] VITALS: BP 142/58; PULSE 72; RESP 16; TEMP 98.6; O2SAT 99
[2025-04-02 04:28] LABS: URINE AMPHETAMINE SCREEN NEGATIVE (Neg); URINE BARBITUATE SCREEN NEGATIVE (Neg); URINE BENZODIAZEPINES SCREEN NEGATIVE (Neg); URINE CANNABINOID SCREEN NEGATIVE (Neg); URINE COCAINE SCREEN NEGATIVE (Neg); URINE METHADONE SCREEN NEGATIVE (Neg); URINE OPIATE SCREEN NEGATIVE (Neg); URINE PHENCYCLIDINE SCREEN NEGATIVE (Neg)
[2025-04-02] MEDS: K and/or MAG REPLACEMENT MC SCH (08:00)
[2025-04-02] MEDS: docusate sod 100mg capsule PO SCH (08:00)
[2025-04-02] MEDS ORDERED: ceFAZolin/D5W- 1GM premix 50 ML IV SCH (08:00)
[2025-04-02] MEDS: CefTRIAXone/D5W-Rocephin 1gm 50 ML IV SCH (08:37)
[2025-04-02] MEDS: INSULIN LISPRO 100 UNIT/ML INSULN.PEN MULTI-DOSE SQ SCH ×2 (08:57→17:35)
[2025-04-02] MEDS: cefepime 1GM in D5W 50mL 50 ML IV SCH (09:03)
[2025-04-02 09:54] VITALS: RESP 16; O2SAT 97
[2025-04-02 10:00] VITALS: BP 133/82; PULSE 75; RESP 19; TEMP 98.7; O2SAT 95
[2025-04-02 10:17] LABS: MEAN PLATELET VOLUME 9.3 FL (7.4-10.4); RED CELL DISTRIBUTION WIDTH 14.6 % (11.5-14.5)
[2025-04-02 10:24] LABS: CREATININE 1.91 MG/DL (0.60-1.10); TOTAL CARBON DIOXIDE 23.9 MMOL/L (24-32); eCRCL 41 ML/MIN; eGFR 35 ML/MIN
--- NOTE | 2025-04-02 11:11 | CONSULTATION REPORT ---
History of Present Illness Providers to CC ~ Reason for Admit\Admit Dx: Upper extremity cellulitis History of Present Illness Orthopedic consultation on 04/02/2025. History of present illness 69-year-old male who noticed a scab on his right hand on the dorsum of his hand at the level of the 3rd metacarpophalangeal joint. Of the following day he had significant swelling and erythema into his hand up towards his wrist. He presented to the emergency room on 04/01/2025 workup revealed no evidence of osteomyelitis or abscess and cellulitis was the admitting diagnosis he was admitted to the hospitalist service and island consulted regarding potential treatment for his right hand. Past medical and surgical history: Per the medical intake H and P. Review of systems: Patient states he has enjoying good health. Subjectively his only complaint is right hand pain and stiffness. He has no significant increased pain with active or passive range of motion to all of his digits to his right hand wrist elbow or shoulder. X-rays: These only revealed soft tissue swelling of the dorsum of the hand without evidence of subcutaneous air. Swelling of the lid considered [id number]. Examination: Right hand shows a eschar over the dorsum of his figure that measures approximately 0.5 cm by 1 cm without active drainage. He has full extension to his fingers and near full composite flexion to his fingers thumb is not involved erythema is under the dorsum of his hands that is receding since he has been on antibiotic therapy over the past 24 hours. Patient had no evidence of fluctuance to his hand. Assessment: Cellulitis right hand blood cultures negative. Responding to IV medication. Plan: Patient does not require surgical intervention. He would benefit from a bulky hand dressing to help with prevent swelling and potential for abscess development. If in fact his courses improving significantly consideration to switching over to p.o. antibiotics is reasonable and a discharge. I will defer to the hospitalist recommendations regarding timing of the change in his treatment. Thank you for the consultation Allergies: Coded Allergies: No Known Allergies (Unverified , 04/01/25) Home Medications Home Medications Active Plavix (Clopidogrel Bisulfate) 75 Mg Tablet 1 Tab PO DAILY Reported Furosemide 40 Mg Tablet 1 Tab PO DAILY Betapace* (Sotalol HCl) 80 Mg Tablet 1 Tab PO BID Amlodipine-Valsartan 5-160 mg (Amlodipine/Valsartan) 5 Mg-160 Mg Tablet 1 Tab PO DAILY Tadalafil 5 Mg Tablet 1 Tab PO Nitroglycerin 0.4 Mg Tab.subl Jardiance (Empagliflozin) 25 Mg Tablet 1 Tab PO DAILY Basaglar Kwikpen U-100 (Insulin Glargine,Hum.rec.anlog) 100 Unit/Ml (3 Ml) Insuln.pen SQ Eliquis (Apixaban) 5 Mg Tablet 1 Tab PO Q12H Atorvastatin Calcium 40 Mg Tablet 1 Tab PO DAILY Metformin HCl 1,000 Mg Tablet 1 Tab PO BID Physical Exam Last Vital Signs Recorded: Temperature: 98.7, Source: Oral, Heart Rate: 75, Respiratory Rate: 19, BP: 133/82, Pulse Oximetry: 95, Weight: 83.500 General Appearance: alert, WD/WN Neck: normal inspection Respiratory: lungs clear Gastrointestinal: non-tender Neurologic: oriented x4 Psychiatric: normal mood/affect Skin: other (Erythema to the dorsum of the right hand with swelling erythema to the distal radius on the dorsum side with lymphangitis 1 cm granulated pustule of the dorsum of the hand with painful extensor mechanism) Results Diagram Lab Result Diagram: 04/02/25 0659 04/02/25 0659 DEVIN ROMAN MD Apr 02, 2025 11:11
--- NOTE | 2025-04-02 15:22 | PROGRESS NOTE- Residence ---
Progress Note - Resident Providers to CC Resident Creating Document: JOAQUIN LEBRON RES ~ Antibiotic Timeout Antibiotic Ordered?: Yes Subjective Seen and examined patient at the bedside, he reports improvement in his pain now he rates 1-2/10 in intensity. Objective Vital Signs Date Time Temp Pulse Resp B/P (MAP) Pulse Ox O2 Delivery O2 Flow Rate FiO2 04/02/25 10:00 98.7 75 19 133/82 (99) 95 Room Air 04/02/25 09:54 0.0 Result Diagram: 04/02/25 0659 04/02/25 0659 Awake , alert, and oriented x4 HEENT: Atraumatic, normocephalic, EOMI, anicteric sclera ; pink conjunctiva Neck: Trachea midline. Supple, full range of motion, no JVD Cardiac: Regular rhythm, regular rate with no murmurs all over the precordium. Respiratory: Equal breath sounds bilaterally, no tachypnea, no wheezing ,rub or rales, Chest wall is symmetric and without deformity. Gastrointestinal: Abdomen symmetric, non-distended, soft, non-tender, normal bowel sounds x4 quadrant, normoactive, no hepatosplenomegaly Neurological: Mental status exam: alert and consciousness, orientation, memory, speech - Cranial nerve test: Cranial nerves 2-12 intact - Motor system: Normal Nutrition, normal tone, Power 5/5, no involuntary movements - Sensory system: Intact - Reflex testing: Biceps, triceps and knee reflexes 2+ - Cerebellar: Normal Skin: Warm and dry Extremities : Right hand is swollen and red, small Scab wound present on the right hand, There is a small scab present on left hand Psychiatric:Appropriate mood and affect,No hallucinations or suicidal ideation Advance Care Planning Advanced Care plannin - 30 Minutes Assessment Assessment 69 years old male with past medical history of insulin-dependent type 2 diabetes mellitus, CVA, congestive heart failure with preserved ejection, CAD s/p stent placement, BPH is currently evaluated for right hand cellulitis Plan Plan Right hand wound likley Cellulitis WBC increased 15.3, procal normal, ESR-Elevated CRP elevated 24.34, lactic acid normal X-ray of the hand shows- no evidence of acute fracture or dislocation., Generalized soft tissue edema throughout the hand. Utox-Negative, Discontinue Ceftriaxone and Cefipime Continue on vancomycin- Day [address] Dey is on board, He deferred Surgical Intervention, Recommended bulky hand dressing to help with prevent swelling and potential for abscess development Insulin Dependent Type 2 DM- Uncontrolled Glucose on admission 418 and Today 268 [id number] Patient on hyperglycemia hypoglycemia protocol, Lantus 10 units MESSI on chronic kidney disease Stage IIIb Likely prerenal Baseline creatinine 1.11 Current creatinine 1.91 , GFR 35 F/p with Bladder Scan Urine lytes ordered. Follow-up Patient on fluids 100 cc/hour Mild hyponatremia-Resolving Na- 137 Patient is on maintenance Fluids Monitor Daily CMP Coronary artery disease s/p stent placement-On Jan 29 Patient currently on dual antiplatelet Eliquis 5 mg, Plavix 75 mg. Patient on atorvastatin 40 mg F/p with lipid panel Patient follows up outpatient with Dr. Cameron History of atrial fibrillation Started home med sotalol Continue Eliquis Congestive heart failure with preserved ejection fraction Not in acute exacerbation Patient takes Jardiance, Lasix 40 mg daily at home We are currently holding medication in view of kidney function BPH- Patient uses tadalafil 5 mg Follow-up outpatient. Code status: Full code DVT profile: Eliquis Diet: Carb controlled Joaquin Lebron PGY1-Internal Medicine Resident This Note has been reviewed by Pgy 2 and Pgy 3 Date of Service: Apr 02, 2025 Billing Provider: JUAN DIEGO BISHOP MD Common Visit Codes: [id number] INP/OBS CARE(HIGH) JOAQUIN LEBRON, RES Apr 02, 2025 15:22 JUAN DIEGO BISHOP MD Apr 03, 2025 06:41
[2025-04-02 18:00] VITALS: BP 146/62; PULSE 71; RESP 18; TEMP 99.4; O2SAT 96
[2025-04-02 20:00] VITALS: RESP 18; O2SAT 97
[2025-04-02] MEDS: insulin glargine (Lantus) pen - multi-dose SQ SCH (20:46)
[2025-04-02] MEDS ORDERED: insulin glargine (Lantus) pen - multi-dose SQ SCH (21:00)
[2025-04-02] MEDS: vancomycin inj. 750 MG in normal saline 250ml IV soln 250 ML IV SCH (21:40)
[2025-04-02 22:00] VITALS: BP 147/54; PULSE 70; RESP 20; TEMP 99.4; O2SAT 93
[2025-04-02] MEDS ORDERED: VANCOMYCIN/WATER FOR INJ (PEG) 750MG/150 ML IVPB IV SCH (22:00)
[2025-04-03 05:00] VITALS: BP 156/78; PULSE 71; RESP 16; TEMP 98; O2SAT 93
[2025-04-03 05:11] LABS: MEAN PLATELET VOLUME 9.3 FL (7.4-10.4); RED CELL DISTRIBUTION WIDTH 14.7 % (11.5-14.5)
[2025-04-03 05:28] LABS: CHOL/HDL RATIO 2.5 (0.00-4.99); CREATININE 1.58 MG/DL (0.60-1.10); LDL CHOLESTEROL 44 MG/DL (50-100); TOTAL CARBON DIOXIDE 24.7 MMOL/L (24-32); eCRCL 49 ML/MIN; eGFR 44 ML/MIN
[2025-04-03] MEDS: INSULIN LISPRO 100 UNIT/ML INSULN.PEN MULTI-DOSE SQ SCH (09:34)
[2025-04-03 10:00] VITALS: BP 143/61; PULSE 60; RESP 17; TEMP 97.1; O2SAT 96
[2025-04-03 10:50] VITALS: RESP 16; O2SAT 93
[2025-04-03] MEDS ORDERED: AMOX-580 PO (11:03)
[2025-04-03] MEDS ORDERED: INSULIN LISPRO 100 UNIT/ML INSULN.PEN MULTI-DOSE SQ SCH (12:30)
--- NOTE | 2025-04-03 18:52 | DISCHARGE SUMMARY-Residence ---
Discharge Summary Providers to CC Resident Creating Document: CHARISSA MARTE, RES ~ Discharge Summary Admission Diagnosis: Cellulitis upper extremity Admission Diagnosis Comment: Cellulitis of the right hand Hospital Course DATE OF ADMISSION: 04/02/2025 DATE OF DISCHARGE: 04/03/2025 Discharge Diagnosis\Comment: Right hand cellulitis Insulin-dependent type 2 diabetes mellitus MESSI on CKD stage III B Mild hyponatremia Congestive heart failure with preserved ejection fraction Coronary artery disease s/p stent placement-On Jan 29 History of atrial fibrillation Congestive heart failure with preserved ejection fraction BPH- Operations\Procedures: None Consultants: Dr. Dey-orthopedician Complications: None Condition on DC: Stable New Medications: Amox Tr/Potassium Clavulanate 875/125 MG (Augmentin 875/125 MG) 875 Mg-125 Mg Tablet 1 TAB PO Q12H for 10 Days, #20 TAB Continued Medications: Amlodipine/Valsartan (Amlodipine-Valsartan 5-160 mg) 5 Mg-160 Mg Tablet 1 TAB PO DAILY Apixaban (Eliquis) 5 Mg Tablet 1 TAB PO Q12H, TAB Atorvastatin Calcium (Atorvastatin Calcium) 40 Mg Tablet 1 TAB PO DAILY Clopidogrel Bisulfate (Plavix) 75 Mg Tablet 1 TAB PO DAILY, #30 TAB 5 Refills Empagliflozin (Jardiance) 25 Mg Tablet 1 TAB PO DAILY Furosemide (Furosemide) 40 Mg Tablet 1 TAB PO DAILY Insulin Glargine,Hum.rec.anlog (Basaglar Kwikpen U-100) 100 Unit/Ml (3 Ml) Insuln.pen SQ Metformin HCl (Metformin HCl) 1,000 Mg Tablet 1 TAB PO BID Nitroglycerin (Nitroglycerin) 0.4 Mg Tab.subl Sotalol Hcl* (Betapace*) 80 Mg Tablet 1 TAB PO BID Tadalafil (Tadalafil) 5 Mg Tablet 1 TAB PO Discharge Summary: History of present illness This is a 69-year-old male with past medical history of diabetes mellitus comes to the ED with chief complaints of pain and swelling in his right hand. Patient reports that his right hand began to swell on Sunday, gradually increasing in size and later turned red in color. 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 Patient says that he noticed a bleb on his right hand, he picked it with a knife, which resulted in yellow colored discharge from the bleb. Patient also reports that he has been having chills for the last 2 days but no episodes of fevers. Patient says that this is the 1st episode that he is experiencing something like this, never had similar complaints in the past. Hospital course The patient, a 69-year-old male with a history of diabetes mellitus, presented to the ED with pain and swelling in his right hand. He was started on IV vancomycin and ceftriaxone/cefepime, along with IV fluids for prerenal acute kidney injury and mild hyponatremia. Orthopedic consultation by Dr. Dey recommended conservative management with bulky hand dressing to prevent swelling and abscess formation, and surgical intervention was deferred. Ceftriaxone/cefepime was discontinued the following day, and vancomycin was continued; renal function and sodium levels improved, and home medications for chronic conditions were resumed. By discharge, the patient reported minimal pain (2/10), had recovered faster than expected, and was discharged home on antibiotics. Vital Signs Date Time Temp Pulse Resp B/P (MAP) Pulse Ox O2 Delivery O2 Flow Rate FiO2 04/03/25 10:50 16 93 Room Air 04/03/25 10:00 97.1 60 143/61 (88) 04/02/25 09:54 0.0 Laboratory Tests Test 04/01/25 21:37 04/02/25 00:03 04/02/25 01:10 04/02/25 02:47 White Blood Count 15.8 X10'3 Red Blood Count 4.80 X10'6 Hemoglobin 15.6 g/dl Hematocrit 45.6 % Mean Corpuscular Volume 94.9 FL Mean Corpuscular Hemoglobin 32.4 PG Mean Corpuscular Hemoglobin Concent 34.1 g/dL Red Cell Distribution Width 14.7 % Platelet Count 213 X10'3 Mean Platelet Volume 8.7 FL Neutrophils (%) (Auto) 86.3 % Lymphocytes (%) (Auto) 5.0 % Monocytes (%) (Auto) 7.8 % Eosinophils (%) (Auto) 0.7 % Basophils (%) (Auto) 0.2 % Neutrophils # (Auto) 13.6 X10'3 Lymphocytes # (Auto) 0.8 X10'3 Monocytes # (Auto) 1.2 X10'3 Eosinophils # (Auto) 0.1 X10'3 Basophils # (Auto) 0.0 X10'3 CBC Comment Sodium Level 133 MMOL/L Potassium Level 4.5 MMOL/L Chloride Level 96 MMOL/L Carbon Dioxide Level 27.8 MMOL/L Anion Gap 9 Blood Urea Nitrogen 31 MG/DL Creatinine 2.25 MG/DL Estimated GFR/1.73 m2 29 ML/MIN BUN/Creatinine Ratio 13.8 Glucose Level 470 MG/DL Hemoglobin A1c 11.5 % Lactic Acid Level 1.7 MMOL/L Calcium Level 8.8 MG/DL C-Reactive Protein 24.34 MG/DL Albumin 3.1 G/DL Procalcitonin 0.35 NG/ML Chemistry Comments Glucometer 418 mg/dl 194 mg/dl Urine Specimen Description Cln catch midstream Urine Color Straw Urine Clarity Clear Urine pH 6.0 Urine Specific [place] 1.010 Urine Protein 100 mg/dl Urine Glucose (UA) >=1000 mg/dl Urine Ketones Negative mg/dl Urine Occult Blood Trace-intact Urine Nitrite Negative Urine Bilirubin Negative Urine Urobilinogen 0.2 E.U/dL Urine Leukocyte Esterase Negative Urine RBC 3-10 /HPF Urine WBC 5-10 /HPF Urine Squamous Epithelial Cells None seen /LPF Urine Bacteria Few /HPF Urine Mucus None seen /LPF Urine Culture Indicated Indicated Volume Urine Centrifuged 10 ml Urine Comment Urine Opiates Screen Negative Urine Methadone Screen Negative Urine Fentanyl Screen Negative Urine Barbiturates Screen Negative Urine Phencyclidine Screen Negative Urine Amphetamines Screen Negative Urine Benzodiazepines Screen Negative Urine Cocaine Screen Negative Urine Cannabinoids Screen Negative Drug Screen Comment Test 04/02/25 06:59 04/02/25 07:43 04/02/25 12:07 04/02/25 17:30 White Blood Count 15.3 X10'3 Red Blood Count 4.36 X10'6 Hemoglobin 14.1 g/dl Hematocrit 41.4 % Mean Corpuscular Volume 94.9 FL Mean Corpuscular Hemoglobin 32.3 PG Mean Corpuscular Hemoglobin Concent 34.0 g/dL Red Cell Distribution Width 14.6 % Platelet Count 188 X10'3 Mean Platelet Volume 9.3 FL Neutrophils (%) (Auto) 79.2 % Lymphocytes (%) (Auto) 9.3 % Monocytes (%) (Auto) 9.2 % Eosinophils (%) (Auto) 1.7 % Basophils (%) (Auto) 0.6 % Neutrophils # (Auto) 12.1 X10'3 Lymphocytes # (Auto) 1.4 X10'3 Monocytes # (Auto) 1.4 X10'3 Eosinophils # (Auto) 0.3 X10'3 Basophils # (Auto) 0.1 X10'3 CBC Comment Erythrocyte Sedimentation Rate 38 MM/HR Sodium Level 137 MMOL/L Potassium Level 4.2 MMOL/L Chloride Level 104 MMOL/L Carbon Dioxide Level 23.9 MMOL/L Anion Gap 9 Blood Urea Nitrogen 33 MG/DL Creatinine 1.91 MG/DL Estimated GFR/1.73 m2 35 ML/MIN BUN/Creatinine Ratio 17.3 Glucose Level 225 MG/DL Calcium Level 8.4 MG/DL Magnesium Level 2.0 MG/DL Total Bilirubin 0.4 MG/DL Aspartate Amino Transf (AST/SGOT) 11 U/L Alanine Aminotransferase (ALT/SGPT) 16 U/L Alkaline Phosphatase 103 IU/L Total Protein 6.5 G/DL Albumin 2.7 G/DL Globulin 3.8 G/DL Albumin/Globulin Ratio 0.7 Chemistry Comments Glucometer 247 mg/dl 268 mg/dl 319 mg/dl Test 04/02/25 20:43 04/03/25 04:15 04/03/25 07:45 Glucometer 244 mg/dl 193 mg/dl White Blood Count 13.0 X10'3 Red Blood Count 4.11 X10'6 Hemoglobin 13.1 g/dl Hematocrit 39.1 % Mean Corpuscular Volume 95.1 FL Mean Corpuscular Hemoglobin 31.9 PG Mean Corpuscular Hemoglobin Concent 33.5 g/dL Red Cell Distribution Width 14.7 % Platelet Count 233 X10'3 Mean Platelet Volume 9.3 FL Neutrophils (%) (Auto) 74.7 % Lymphocytes (%) (Auto) 11.9 % Monocytes (%) (Auto) 10.7 % Eosinophils (%) (Auto) 2.3 % Basophils (%) (Auto) 0.4 % Neutrophils # (Auto) 9.7 X10'3 Lymphocytes # (Auto) 1.5 X10'3 Monocytes # (Auto) 1.4 X10'3 Eosinophils # (Auto) 0.3 X10'3 Basophils # (Auto) 0.1 X10'3 CBC Comment Sodium Level 140 MMOL/L Potassium Level 4.8 MMOL/L Chloride Level 108 MMOL/L Carbon Dioxide Level 24.7 MMOL/L Anion Gap 7 Blood Urea Nitrogen 33 MG/DL Creatinine 1.58 MG/DL Estimated GFR/1.73 m2 44 ML/MIN BUN/Creatinine Ratio 20.9 Glucose Level 205 MG/DL Calcium Level 8.3 MG/DL Magnesium Level 2.2 MG/DL Total Bilirubin 0.5 MG/DL Aspartate Amino Transf (AST/SGOT) 53 U/L Alanine Aminotransferase (ALT/SGPT) 40 U/L Alkaline Phosphatase 191 IU/L Total Protein 6.0 G/DL Albumin 2.3 G/DL Globulin 3.7 G/DL Albumin/Globulin Ratio 0.6 Triglycerides Level 91 MG/DL Cholesterol Level 104 MG/DL LDL Cholesterol 44 MG/DL HDL Cholesterol 41 MG/DL Cholesterol/HDL Ratio 2.5 Chemistry Comments Physical examination Awake , alert, and oriented x4 HEENT: Atraumatic, normocephalic, EOMI, anicteric sclera ; pink conjunctiva Neck: Trachea midline. Supple, full range of motion, no JVD Cardiac: Regular rhythm, regular rate with no murmurs all over the precordium. Respiratory: Equal breath sounds bilaterally, no tachypnea, no wheezing ,rub or rales, Chest wall is symmetric and without deformity. Gastrointestinal: Abdomen symmetric, non-distended, soft, non-tender, normal bowel sounds x4 quadrant, normoactive, no hepatosplenomegaly Neurological: Mental status exam: alert and consciousness, orientation, memory, speech - Cranial nerve test: Cranial nerves 2-12 intact - Motor system: Normal Nutrition, normal tone, Power 5/5, no involuntary movements - Sensory system: Intact - Reflex testing: Biceps, triceps and knee reflexes 2+ - Cerebellar: Normal Skin: Warm and dry Extremities : Right hand is swollen and red, small Scab wound present on the right hand which is covered with dressing, There is a small scab present on left hand Psychiatric:Appropriate mood and affect,No hallucinations or suicidal ideation Imaging at hospital Hand x-ray-There is no evidence of acute fracture or dislocation.Generalized soft tissue edema throughout the hand. Discharge instructions Started antibiotics Amox Tr/Potassium Clavulanate 875/125 MG (Augmentin 875/125 MG) 875 Mg-125 Mg Tablet for b.i.d. 10 days *Problems/Diagnosis: (1) Cellulitis of right hand Total Time Spent on D/C: Up to 30 Minutes Date of Service: Apr 03, 2025 Billing Provider: JUAN DIEGO BISHOP MD Common Visit Codes: 82242-NJJ/OBS DISCH DAY >30min CHARISSA MARTE, RES Apr 03, 2025 18:50 JUAN DIEGO BISHOP MD Apr 04, 2025 07:19
[2025-04-04] MEDS ORDERED: VANCOMYCIN LEVEL IV ONE (21:30)
== END 2025-04-03 11:48 | disposition home or self-care (01) | DRG 602 ==
LOC: ER 20:06 → ED HOLD 23:51 → SUR 3N 04-02 03:30
PROVIDERS: ADMIT Internal Medicine; ATTEND Internal Medicine
DX: L03.113 Cellulitis of right upper limb (principal); N17.0 Acute kidney failure with tubular necrosis; E87.1 Hypo-osmolality and hyponatremia; I50.30 Unspecified diastolic (congestive) heart failure; L02.511 Cutaneous abscess of right hand; E11.65 Type 2 diabetes mellitus with hyperglycemia; E11.22 Type 2 diabetes mellitus with diabetic chronic kidney disease; Z79.01 Long term (current) use of anticoagulants; I13.0 Hypertensive heart and chronic kidney disease with heart failure and stage 1 through stage 4 chronic kidney disease, or unspecified chronic kidney disease; N18.32 Chronic kidney disease, stage 3b; I25.10 Atherosclerotic heart disease of native coronary artery without angina pectoris; N40.0 Benign prostatic hyperplasia without lower urinary tract symptoms; Z87.891 Personal history of nicotine dependence; Z79.84 Long term (current) use of oral hypoglycemic drugs; Z79.899 Other long term (current) drug therapy; Z86.73 Personal history of transient ischemic attack (TIA), and cerebral infarction without residual deficits
CPT/HCPCS: 36415; 73130; 80048; 80053; 80061; 80305; 81001; 82948; 83036; 83605; 83735; 84145; 85025; 85651; 86140; 87040; 87081; 87088; 99285; A6258; A6449; G0378; J0131; J0692; J0696; J1815; J1885; J3373; J7030; J7050